=== PATIENT | male | born 1965 | race Two or more races ===

== ENCOUNTER 2018-12-30 21:17 | Inpatient (IN) | payer SELFPAY ==
[~2018-12-30] VITALS: Ht 182.9 cm; Wt 85.3 kg
[2018-12-30] MEDS ORDERED: VIRAMUNE200 MG PO (21:19)
[2018-12-30] MEDS ORDERED: descovy (21:19)
--- NOTE | 2018-12-30 21:20 | NUR ---
ED Nurse Note: pt brought in by [facility] c/o fever and AYALA, photosensitivity per EMS report, pt temporal temp was 107. Pt AA&ox4, gcs=15, skin warm and dry, resp even and unlabored on RA, -n/v/d, ambulates w/ steady gait, will cont monitor. hx meningitis.
--- NOTE | 2018-12-30 21:40 | NUR ---
ED Nurse Note: cooling mesures done.
[2018-12-30] MEDS ORDERED: Sodium Chloride 2,600 ML IVLG ONE (21:45)
[2018-12-30] MEDS ORDERED: Acetaminophen 500mg (ES) tab ORAL ONE (21:45)
--- NOTE | 2018-12-30 21:59 | Emergency Room Report ---
History of Present Illness General Chief Complaint: Fever Source: Patient Present Illness HPI Patient presents with reports of fever at home body ache headache Sore throat Patient reports that he flew back from [place] about 2 weeks ago He reports that he has not felt 100% since then Today after going to the gym Getting a haircut patient started developing a high fever It was reported to be up to 107 out of home Presents with 102.7 fever at triage Denies any chest pain denies any vomiting or diarrhea denies any abdominal pain denies any focal weakness patient reports that last year he was reported to have questionable meningitis however this was never diagnosed Patient also reports increased burning with urination Allergies: Coded Allergies: No Known Allergies (Unverified , 12/30/18) Patient History Past Medical History: see triage record Pertinent Family History: none Reviewed Nursing Documentation: PMH: Agreed; PSxH: Agreed Nursing Documentation-PMH Past Medical History: No History, Except For Hx Cardiac Problems: No - HIV, meningitis Review of Systems All Other Systems: negative except mentioned in HPI Physical Exam Vital Signs Date Time Temp Pulse Resp B/P (MAP) Pulse Ox O2 Delivery O2 Flow Rate FiO2 12/30/18 21:15 102.7 106 20 134/80 96 Room Air Sp02 EP Interpretation: reviewed, normal General Appearance: no apparent distress Head: normocephalic, atraumatic Eyes: bilateral eye PERRL, bilateral eye EOMI ENT: hearing grossly normal, normal pharynx, TMs + canals normal, uvula midline Neck: full range of motion, supple, no meningismus, no bony tend Respiratory: lungs clear, normal breath sounds, no rhonchi, no respiratory distress, no retraction, no accessory muscle use Cardiovascular #1: normal peripheral pulses, regular rate, rhythm, no edema, no gallop, no JVD, no murmur Gastrointestinal: normal bowel sounds, non tender, soft, no mass, no organomegaly, non-distended, no guarding, no pulsatile mass, no rebound, other - Palpable mid abdominal hernia Genitourinary: no CVA tenderness Musculoskeletal: normal inspection Neurologic: oriented x3, responsive, red hat engineer III-XII nml as tested, motor strength/ tone normal, sensory intact Psychiatric: mood/affect normal Skin: warm/dry, palpation normal, other - Right-sided previous inguinal surgery Lymphatic: normal inspection, no adenopathy Medical Decision Making Diagnostic Impression: Primary Impression: Fever Additional Impression: Rhabdomyolysis ER Course Multiple differentials considered including but not limited to flu symptoms, URI , meningitis Patient's white blood cell count is mildly elevated Total CK was elevated Patient further hydrated a medication provided Continues to feel significantly better Given the patient's findings and presentation consideration is made regarding meningitis however patient does not show any signs of meningismal findings, neck exam is completely benign Patient does not appear septic or toxic and after further discussion does not want to perform the lumbar puncture procedure as well I feel given the patient's findings and presentation he can be safely admitted for further inpatient care Labs Test 12/30/18 22:00 12/30/18 23:16 White Blood Count 15.8 K/UL (4.8-10.8) Red Blood Count 4.48 M/UL (4.70-6.10) Hemoglobin 15.5 G/DL (14.2-18.0) Hematocrit 42.9 % (42.0-52.0) Mean Corpuscular Volume 96 FL (80-99) Mean Corpuscular Hemoglobin 34.6 PG (27.0-31.0) Mean Corpuscular Hemoglobin Concent 36.1 G/DL (32.0-36.0) Red Cell Distribution Width 10.6 % (11.6-14.8) Platelet Count 213 K/UL (150-450) Mean Platelet Volume 6.8 FL (6.5-10.1) Neutrophils (%) (Auto) % (45.0-75.0) Lymphocytes (%) (Auto) % (20.0-45.0) Monocytes (%) (Auto) % (1.0-10.0) Eosinophils (%) (Auto) % (0.0-3.0) Basophils (%) (Auto) % (0.0-2.0) Differential Total Cells Counted 100 Neutrophils % (Manual) 88 % (45-75) Lymphocytes % (Manual) 7 % (20-45) Monocytes % (Manual) 5 % (1-10) Eosinophils % (Manual) 0 % (0-3) Basophils % (Manual) 0 % (0-2) Band Neutrophils 0 % (0-8) Platelet Estimate Adequate Platelet Morphology Normal Red Blood Cell Morphology Normal Sodium Level 134 MMOL/L (136-145) Potassium Level 3.3 MMOL/L (3.5-5.1) Chloride Level 99 MMOL/L (98-107) Carbon Dioxide Level 23 MMOL/L (21-32) Anion Gap 12 mmol/L (5-15) Blood Urea Nitrogen 13 mg/dL (7-18) Creatinine 1.1 MG/DL (0.55-1.30) Estimat Glomerular Filtration Rate > 60 mL/min (>60) Glucose Level 112 MG/DL (74-106) Lactic Acid Level 1.00 mmol/L (0.4-2.0) Calcium Level 9.1 MG/DL (8.5-10.1) Total Bilirubin 0.6 MG/DL (0.2-1.0) Aspartate Amino Transf (AST/SGOT) 113 U/L (15-37) Alanine Aminotransferase (ALT/SGPT) 41 U/L (12-78) Alkaline Phosphatase 109 U/L (46-116) Total Creatine Kinase 5572 U/L (26-308) Creatine Kinase MB 1.6 NG/ML (0.0-3.6) Creatine Kinase MB Relative Index 0.0 Troponin I 0.003 ng/mL (0.000-0.056) Pro-B-Type Natriuretic Peptide 73 pg/mL (0-125) Total Protein 7.1 G/DL (6.4-8.2) Albumin 3.6 G/DL (3.4-5.0) Globulin 3.5 g/dL Albumin/Globulin Ratio 1.0 (1.0-2.7) Lipase 136 U/L (73-393) Urine Color Pale yellow Urine Appearance Clear Urine pH 7 (4.5-8.0) Urine Specific [place] 1.005 (1.005-1.035) Urine Protein Negative (NEGATIVE) Urine Glucose (UA) Negative (NEGATIVE) Urine Ketones Negative (NEGATIVE) Urine Blood Negative (NEGATIVE) Urine Nitrite Negative (NEGATIVE) Urine Bilirubin Negative (NEGATIVE) Urine Urobilinogen Normal MG/DL (0.0-1.0) Urine Leukocyte Esterase Negative (NEGATIVE) Rhythm Strip Diag. Results EP Interpretation: yes Rate: 77 Rhythm: NSR, no PVC's, no ectopy Chest X-Ray Diagnostic Results Chest X-Ray Diagnostic Results : Chest X-Ray Ordered: Yes # of Views/Limited/Complete: 1 View Indication: Shortness of Breath EP Interpretation: Yes Interpretation: no consolidation, no effusion, no pneumothorax Impression: No acute disease Electronically Signed by: Liza Dai DO CT/MRI/US Diagnostic Results CT/MRI/US Diagnostic Results : Impression CT head no acute disease Last Vital Signs Date Time Temp Pulse Resp B/P (MAP) Pulse Ox O2 Delivery O2 Flow Rate FiO2 12/30/18 21:15 102.7 106 20 134/80 96 Room Air Status: improved Disposition: ADMITTED INPATIENT Condition: Serious Liza Dai DO Dec 30, 2018 21:59
[2018-12-30 22:25] VITALS: BP 136/83
[2018-12-30 22:41] LABS: ANION GAP 12 mmol/L (5-15); BLOOD UREA NITROGEN 13 mg/dL (7-18); CALCIUM 9.1 MG/DL (8.5-10.1); CARBON DIOXIDE 23 MMOL/L (21-32); CHLORIDE 99 MMOL/L (98-107); CREATININE 1.1 MG/DL (0.55-1.30); POTASSIUM 3.3 MMOL/L (3.5-5.1); SODIUM 134 MMOL/L (136-145)
[2018-12-30 22:45] LABS: HEMATOCRIT 42.9 % (42.0-52.0); HEMOGLOBIN 15.5 G/DL (14.2-18.0); MEAN CORPUSCULAR VOLUME 96 FL (80-99); PLATELET COUNT 213 K/UL (150-450); RED BLOOD COUNT 4.48 M/UL (4.70-6.10); RED CELL DISTRIBUTION WIDTH 10.6 % (11.6-14.8); WHITE BLOOD COUNT 15.8 K/UL (4.8-10.8)
[2018-12-30 22:54] LABS: ALANINE AMINOTRANSFERASE 41 U/L (12-78); ALBUMIN 3.6 G/DL (3.4-5.0); ALKALINE PHOSPHATASE 109 U/L (46-116); ASPARTATE AMINO TRANSFERASE 113 U/L (15-37); BILIRUBIN,TOTAL 0.6 MG/DL (0.2-1.0); CKMB 1.6 NG/ML (0.0-3.6); CREATINE KINASE 5572 U/L (26-308)
[2018-12-30] MEDS ORDERED: Ketorolac 30mg Inj IV ONE (23:00)
[2018-12-30 23:25] VITALS: BP 110/86
[2018-12-30 23:33] LABS: APPEARANCE,URINE CLEAR; BILIRUBIN, URINE NEGATIVE (NEGATIVE); COLOR,URINE PALE YELLOW; GLUCOSE, URINE (UA) NEGATIVE (NEGATIVE); KETONES,URINE NEGATIVE (NEGATIVE); LEUKOCYTE ESTERASE ,URINE NEGATIVE (NEGATIVE); NITRITE,URINE NEGATIVE (NEGATIVE); PH,URINE 7 (4.5-8.0); PROTEIN,URINE NEGATIVE (NEGATIVE); UROBILINOGEN,URINE NORMAL MG/DL (0.0-1.0)
--- NOTE | 2018-12-31 00:09 | NUR ---
ED Nurse Note: temp98.3
--- NOTE | 2018-12-31 01:00 | NUR ---
ED Nurse Note: pt stable to go [facility] per ERMD.
--- NOTE | 2018-12-31 01:25 | NUR ---
ED Nurse Note: report given to TERENCE Kelly to continue care from [facility].
[2018-12-31 01:26] VITALS: BP 128/73
--- NOTE | 2018-12-31 01:50 | NUR ---
NURSE NOTES: Received report from Maricarmen at 1:30am. Pt received awake, alert , oriented X 4, no c/o pain or signs of distress at the moment, pt ambulatory, able to make needs known, called Dr. Driver, order to continue ER medications. Charge Nurse Toshia called back and received more orders. Vital signs 97.8, 94% RA, BP 90/54, 85HR. ordered IV bolus sodium chloride 1 liter. will continue to monitor.
--- NOTE | 2018-12-31 01:58 | NUR ---
ED Nurse Note: pt transferred to [place], all belongings sent with pt, pt vss, airway intact, resp even and unlabored, nsr on vessel specialist.
[2018-12-31 04:00] VITALS: BP 90/54
[2018-12-31 06:00] VITALS: BP 148/91
--- NOTE | 2018-12-31 07:41 | NUR ---
HAND-OFF: Report given to TERENCE Long.
[2018-12-31 08:00] VITALS: BP 101/64
[2018-12-31 09:22] LABS: HEMOGLOBIN 13.3 G/DL (14.2-18.0); MEAN CORPUSCULAR VOLUME 97 FL (80-99); PLATELET COUNT 172 K/UL (150-450); RED BLOOD COUNT 3.82 M/UL (4.70-6.10); RED CELL DISTRIBUTION WIDTH 10.8 % (11.6-14.8); WHITE BLOOD COUNT 10.2 K/UL (4.8-10.8)
[2018-12-31 09:52] LABS: ANION GAP 9 mmol/L (5-15); BLOOD UREA NITROGEN 10 mg/dL (7-18); CALCIUM 8.3 MG/DL (8.5-10.1); CARBON DIOXIDE 23 MMOL/L (21-32); CHLORIDE 106 MMOL/L (98-107); CREATININE 0.9 MG/DL (0.55-1.30); POTASSIUM 3.3 MMOL/L (3.5-5.1); SODIUM 138 MMOL/L (136-145)
[2018-12-31 12:00] VITALS: BP 152/89
[2018-12-31] MEDS ORDERED: LEVAQUIN500 MG ORAL ×2 (12:55→12:56)
[2018-12-31] MEDS ORDERED: NEVIRAPINE200 MG PO (12:58)
--- NOTE | 2018-12-31 17:45 | History and Physical Report ---
DATE OF ADMISSION: 12/31/2018 HISTORY AND PHYSICAL/DISCHARGE SUMMARY HISTORY OF PRESENT ILLNESS: This is a young 53-year-old male who came to the emergency room for having fever and was found to have rhabdomyolysis. Potassium was low. The patient is in bed, doing good. No fever. No chills. PAST MEDICAL HISTORY: None. ALLERGIES: None. MEDICATIONS: None. PHYSICAL EXAMINATION: GENERAL: This is a young white male, currently comfortable. VITAL SIGNS: His blood pressure is 101/64, pulse 90, respirations 17, temperature 99. SKIN: Good skin turgor. HEENT: NAD. CHEST: Bilateral clear. CARDIOVASCULAR: Regular rhythm. ABDOMEN: Soft. Positive bowel sounds. Nontender. EXTREMITIES: No CCE. NEUROLOGICAL: No focal deficit. LABORATORY DATA: White counts are 10,000, hemoglobin 13, hematocrit 37, platelets are 172,000. Chemistry panel, potassium was 3.3. We will replace the potassium. Creatinine 0.9. CK was yesterday. Troponin 0.03. His urine is negative. ASSESSMENT: 1. Fever. 2. Possible rhabdomyolysis. 3. Alcohol abuse. PLAN: We will encourage p.o. fluid. Add antibiotic, Levaquin 500 daily for 5 days. Continue bed rest and follow up primary care as outpatient. The patient was given IV fluid and antibiotics. Jose Driver M.D. DR: Ibrahima JOB#: [id number] CC:
--- NOTE | 2019-01-01 16:25 | Cardiology Report ---
APPROVED REPORT EKG Measurement Heart [id number] Normal sinus rhythm Normal ECG
--- NOTE | 2019-01-03 15:57 | Discharge Summary ---
Discharge Summary Discharge Summary _ DATE OF ADMISSION: 12/31/2018 DATE OF DISCHARGE: 12/31/2018 DISCHARGED BY: Dr. Driver REASON FOR ADMISSION: 53 years old male with past medical history of HIV, presented to emergency department with complaint of fever at home and generalized body aches. Patient reported that since he came back from [place] ,about 2 weeks ago, he had not been feeling well. Prior to presentation to ED he went to the gym, then had a haircut and developed high fever. Upon evaluation in ED patient was febrile, with temperature 102.7 , tachycardic with heart rate 106. Laboratory workup revealed leukocytosis of 15.8, hemoglobin 10.5, hematocrit 42.9, platelets 213. Sodium 134, potassium 3.3. Stable renal parameters. Lactic acid 1.0. Glucose 112. Stable LFT. CK 5572. Troponin negative, pro BNP 73. EKG revealed sinus rhythm no acute ischemic changes. Urinalysis revealed no evidence of UTI. Chest x-ray revealed no acute cardiopulmonary pathology. CT of the head revealed no acute intracranial pathology. Patient was admitted to floor for further management. HOSPITAL COURSE: Patient admitted to medical surgical floor. Patient started IV fluids and on empiric antibiotic for 5 days course. Renal parameters and electrolytes were closely monitored. CK was trending. Hypokalemia corrected. Nephrotoxins were avoided ART therapy continued. Supportive care provided Fever resolved. Pulse oximetry was stable on room air. Leukocytosis resolved. Patient reported feeling better and verbalized desire to go home. Patient was counseled on proper IV hydration. Patient was counseled on abstinence from ETOH and illegal street drugs. Patient to follow-up with the primary care provider this week to check CK and chemistry. Return to ED precautions were reviewed with patient Due to rapid and unexpected improvement in patient condition, patient was discharged in 1 day. FINAL DIAGNOSES: Fever Rhabdomyolysis Alcohol abuse HIV statin Hypokalemia DISCHARGE MEDICATIONS: See Medication Reconciliation list. DISCHARGE INSTRUCTIONS: Patient was discharged home. Follow-up with primary care provider in 2 days to check CK and chemistry. Patient was counseled on general hydration. I have been assigned to dictate discharge summary for this account. I was not involved in the patient's management. Vijaya Chowdary NP Jan 03, 2019 15:57
== END 2018-12-31 13:30 | disposition home or self-care (01) | DRG 558 ==
LOC: EDBD 21:17 → EMR 21:38 → 4E 12-31 00:13 → EDBEDREQSVC 12-31 00:59 → EDBEDREQ 12-31 01:03
DX: M62.82 Rhabdomyolysis (principal); B20 Human immunodeficiency virus [HIV] disease; R50.9 Fever, unspecified; F10.10 Alcohol abuse, uncomplicated; E87.6 Hypokalemia
CPT/HCPCS: 36415; 70450; 71045; 80048; 80053; 81003; 82550; 82553; 83605; 83690; 83880; 84484; 85007; 85025; 86710; 87040; 93005; 96361; 96374; 99285; J8499

== ENCOUNTER 2019-06-18 00:16 | Emergency (ER) | payer SELFPAY ==
[~2019-06-18] VITALS: Ht 182.9 cm; Wt 86.2 kg
[~2019-06-18 00:16] MED LIST: LEVAQUIN500 MG ORAL; NEVIRAPINE200 MG PO; VIRAMUNE200 MG PO; descovy
[2019-06-18 00:24] VITALS: BP 127/83
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
[2019-06-18] MEDS ORDERED: Tylenol #3 tab (300mg/30mg) PO ONE (00:30)
[2019-06-18] MEDS ORDERED: Tetanus/Diptheria/Pertussis IM ONE (00:30)
[2019-06-18] MEDS ORDERED: AMBIEN5 MG ORAL (00:46)
[2019-06-18] MEDS ORDERED: BACTRIM DOUBLE S1 E1 ORAL (00:46)
[2019-06-18] MEDS ORDERED: DIAZEPAM10 MG ORAL (00:46)
[2019-06-18] MEDS ORDERED: VIRAMUNE200 MG PO (00:46)
[2019-06-18] MEDS ORDERED: TRUVADA1 TAB ORAL (00:46)
[2019-06-18] MEDS ORDERED: [UNRECOGNIZED DRUG - OTHER] (00:46)
[2019-06-18] MEDS ORDERED: TRAZODONE HCL50 MG ORAL (00:46)
[2019-06-18] MEDS ORDERED: ALPRAZOLAM0.25 M2 ORAL (00:46)
--- NOTE | 2019-06-18 00:53 | NUR ---
ED Nurse Note: imaging at bedside
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
--- NOTE | 2019-06-18 01:23 | Diagnostic Imaging Report ---
EXAM: XR Right Hand Complete, 3 or More Views CLINICAL HISTORY: PAIN TECHNIQUE: Frontal, lateral and oblique views of the right hand. COMPARISON: No relevant prior studies available. FINDINGS: Bones/joints: No acute fracture or malalignment. Soft tissues: Unremarkable. No radiopaque foreign body. IMPRESSION: No acute fracture or malalignment.
--- NOTE | 2019-06-18 01:30 | NUR ---
ED Nurse Note: wrist splint applied to right arm
[2019-06-18 01:32] VITALS: BP 127/83
--- NOTE | 2019-06-18 01:32 | NUR ---
ER DISCHARGE NOTE: Patient is cleared to be discharged per ERMD, pt is aox4, on room air, with stable vital signs. [facility] was given dc and prescription instructions, pt was able to verbalize understanding, pt id band removed. pt is able to ambulate with steady gait in [facility] custody with all belongings.
== END 2019-06-18 01:32 ==
LOC: EMR 00:50
DX: S01.01XA Laceration without foreign body of scalp, initial encounter (principal); S60.221A Contusion of right hand, initial encounter; Z23 Encounter for immunization; B20 Human immunodeficiency virus [HIV] disease; W22.8XXA Striking against or struck by other objects, initial encounter; Y92.9 Unspecified place or not applicable
CPT/HCPCS: 29125; 90471; 90715; 99283